=== PATIENT | male | born 1995 ===

== ENCOUNTER 2021-05-19 20:23 | Observation (INO) ==
[2021-05-19 21:11] LABS: Basophils # 0.1 10*3/uL (0.0-0.2); Basophils % 0.3 % (0.0-0.8); Eosinophils # 0.1 10*3/uL (0.0-0.87); Eosinophils % 0.3 % (0.00-10.9); Hemoglobin 14.1 GM/DL (14.0-18.0); Immature Granulocytes % 0.4 %; Immature Granulocytes Absolute 0.07 #; Lymphocytes # 1.3 10*3/uL (1.4-4.0); Lymphocytes % 7.3 % (21.2-54.2); Mean Corpuscular HGB Conc 33.6 GM/DL (32-36); Mean Corpuscular Volume 92.1 FL (87-102); Mean Platelet Volume 9.8 FL (9.6-12.0); Monocytes % 9.4 % (1.7-12.7); Neutrophils % 82.3 % (38.7-73.9); Platelet Count 326 T/CUMM (130-400); Red Blood Count 4.56 MC/CUMM (3.8-5.5); Red Cell Distribution Width 12.1 % (9.3-17.3); White Blood Count 17.8 T/CUMM (4-12)
[2021-05-19] MEDS ORDERED: MORPHINE 4 MG/1 ML VIAL IV STA (21:20)
[2021-05-19] MEDS ORDERED: PIPERACILLIN/TAZOBACTAM 3,375 MG in SODIUM CHLORIDE 0.9% 100 ML IV STA (21:20)
[2021-05-19 21:23] LABS: Albumin 3.7 G/DL (3.4-5.0); Bilirubin,Direct 0.11 MG/DL (0.0-0.20); Bilirubin,Indirect 0.3 MG/DL (0.0-1.0); Bilirubin,Total 0.4 MG/DL (0.20-1.00); Calcium 8.4 MG/DL (8.5-10.1); Osmolality,Calculated 271.8 MOS/KG (273-304); Total Protein 7.5 G/DL (6.4-8.2)
[2021-05-19] MEDS ORDERED: ONDANSETRON 4 MG/2 ML VIAL IV PRN (21:32)
[2021-05-19] MEDS: LACTATED RINGERS 1,000 ML IV SCH (22:59)
[2021-05-20] MEDS: PIPERACILLIN/TAZOBACTAM 3,375 MG in SODIUM CHLORIDE 0.9% 100 ML IV SCH ×3 (05:46→22:02)
[2021-05-20 07:20] LABS: Basophils # 0.1 10*3/uL (0.0-0.2); Basophils % 0.4 % (0.0-0.8); Eosinophils # 0.1 10*3/uL (0.0-0.87); Eosinophils % 0.9 % (0.00-10.9); Hematocrit 43.2 VOL% (42.0-52.0); Hemoglobin 14.1 GM/DL (14.0-18.0); Immature Granulocytes % 0.5 %; Immature Granulocytes Absolute 0.08 #; Lymphocytes # 1.5 10*3/uL (1.4-4.0); Lymphocytes % 10.3 % (21.2-54.2); Mean Corpuscular HGB Conc 32.6 GM/DL (32-36); Mean Corpuscular Volume 92.5 FL (87-102); Mean Platelet Volume 10.4 FL (9.6-12.0); Monocytes % 12.7 % (1.7-12.7); Neutrophils % 75.2 % (38.7-73.9); Platelet Count 330 T/CUMM (130-400); Red Blood Count 4.67 MC/CUMM (3.8-5.5); Red Cell Distribution Width 12.3 % (9.3-17.3); White Blood Count 14.6 T/CUMM (4-12)
[2021-05-20 07:58] LABS: Albumin 3.4 G/DL (3.4-5.0); Calcium 8.5 MG/DL (8.5-10.1); Osmolality,Calculated 273.7 MOS/KG (273-304); Potassium 3.9 MMOL/L (3.5-5.1); Total Protein 7.2 G/DL (6.4-8.2)
[2021-05-20] MEDS: LACTATED RINGERS 1,000 ML IV SCH (07:59)
[2021-05-20] MEDS: MORPHINE 2 MG/1 ML SYRINGE IV PRN ×3 (07:59→23:53)
[2021-05-20] MEDS: PANTOPRAZOLE 40 MG VIAL IV SCH (08:15)
[2021-05-21] MEDS: LACTATED RINGERS 1,000 ML IV SCH ×3 (02:07→11:20)
[2021-05-21] MEDS: PIPERACILLIN/TAZOBACTAM 3,375 MG in SODIUM CHLORIDE 0.9% 100 ML IV SCH ×3 (05:17→21:10)
[2021-05-21 05:59] LABS: Basophils # 0.1 10*3/uL (0.0-0.2); Basophils % 0.4 % (0.0-0.8); Eosinophils # 0.2 10*3/uL (0.0-0.87); Eosinophils % 1.4 % (0.00-10.9); Hematocrit 42.9 VOL% (42.0-52.0); Hemoglobin 14.6 GM/DL (14.0-18.0); Immature Granulocytes % 0.4 %; Immature Granulocytes Absolute 0.06 #; Lymphocytes # 1.5 10*3/uL (1.4-4.0); Lymphocytes % 9.1 % (21.2-54.2); Mean Corpuscular Volume 90.5 FL (87-102); Monocytes % 15.4 % (1.7-12.7); Neutrophils % 73.3 % (38.7-73.9); Platelet Count 288 T/CUMM (130-400); Red Blood Count 4.74 MC/CUMM (3.8-5.5); Red Cell Distribution Width 12.1 % (9.3-17.3); White Blood Count 16.4 T/CUMM (4-12)
[2021-05-21] MEDS ORDERED: LIDOCAINE 1%/EPI INJ 20 ML VIAL ONE (10:11)
[2021-05-21] MEDS ORDERED: BUPIVACAINE MPF 0.25% 30 ML VIAL ONE (10:11)
[2021-05-21] MEDS ORDERED: TISSUE ADHESIVE 1 EACH APPLICATOR TOP ONE (10:11)
[2021-05-21] MEDS ORDERED: DIAZEPAM 5 MG TABLET PO ONE (10:16)
[2021-05-21] MEDS: PANTOPRAZOLE 40 MG VIAL IV SCH (11:19)
[2021-05-21] MEDS ORDERED: KETOROLAC 30 MG/1 ML VIAL ONE (11:40)
[2021-05-21] MEDS ORDERED: SEVOFLURANE 1 UNIT/15 MINUTE INH ONE ×4 (11:40→13:04)
[2021-05-21] MEDS ORDERED: propofoL 200 MG/20 ML VIAL IV ONE (11:40)
[2021-05-21] MEDS ORDERED: ONDANSETRON 4 MG/2 ML VIAL ONE (11:40)
[2021-05-21] MEDS ORDERED: fentaNYL 100 MCG/2 ML VIAL ONE (11:40)
[2021-05-21] MEDS ORDERED: MIDAZOLAM 2 MG/2 ML VIAL ONE (11:40)
[2021-05-21] MEDS ORDERED: LIDOCAINE 2% 5 ML VIAL ONE (11:40)
[2021-05-21] MEDS ORDERED: DEXAMETHASONE 4 MG/1 ML VIAL ONE ×2 (11:40→12:25)
[2021-05-21] MEDS ORDERED: ROCURONIUM 50 MG/5 ML VIAL IV ONE (11:40)
[2021-05-21] MEDS ORDERED: GLYCOPYRROLATE 0.4 MG/2 ML VIAL ONE (12:18)
[2021-05-21] MEDS ORDERED: NEOSTIGMINE 10 MG/10 ML VIAL ONE (12:19)
[2021-05-21] MEDS ORDERED: ACETAMINOPHEN INJ 1,000 MG/100 ML VIAL IV ONE (12:24)
[2021-05-21] MEDS ORDERED: PROMETHAZINE INJ 25 MG in SODIUM CHLORIDE 0.9% 50 ML IV PRN (13:02)
[2021-05-21] MEDS ORDERED: diphenhydrAMINE 50 MG/1 ML VIAL IV PRN (13:02)
[2021-05-21] MEDS ORDERED: ONDANSETRON 4 MG/2 ML VIAL IV PRN (13:02)
[2021-05-21] MEDS ORDERED: HYDROmorphone 2 MG/1 ML VIAL IV PRN (13:02)
[2021-05-21] MEDS ORDERED: MEPERIDINE 25 MG/1 ML VIAL ONE (13:35)
[2021-05-21] MEDS ORDERED: MEPERIDINE 25 MG/1 ML VIAL IV PRN (13:55)
[2021-05-21] MEDS: MORPHINE 2 MG/1 ML SYRINGE IV PRN ×2 (17:24→21:10)
[2021-05-22] MEDS: MORPHINE 2 MG/1 ML SYRINGE IV PRN ×3 (01:05→11:07)
[2021-05-22] MEDS: LACTATED RINGERS 1,000 ML IV SCH (02:34)
[2021-05-22 06:04] LABS: Basophils % 0.2 % (0.0-0.8); Eosinophils # 0.1 10*3/uL (0.0-0.87); Eosinophils % 0.3 % (0.00-10.9); Hematocrit 37.4 VOL% (42.0-52.0); Hemoglobin 12.9 GM/DL (14.0-18.0); Immature Granulocytes % 0.5 %; Immature Granulocytes Absolute 0.08 #; Lymphocytes # 1.4 10*3/uL (1.4-4.0); Lymphocytes % 8.9 % (21.2-54.2); Mean Corpuscular HGB Conc 34.5 GM/DL (32-36); Mean Corpuscular Volume 91.4 FL (87-102); Mean Platelet Volume 10.2 FL (9.6-12.0); Monocytes % 11.7 % (1.7-12.7); Neutrophils % 78.4 % (38.7-73.9); Platelet Count 289 T/CUMM (130-400); Red Blood Count 4.09 MC/CUMM (3.8-5.5); Red Cell Distribution Width 12.1 % (9.3-17.3); White Blood Count 15.7 T/CUMM (4-12)
[2021-05-22] MEDS: PIPERACILLIN/TAZOBACTAM 3,375 MG in SODIUM CHLORIDE 0.9% 100 ML IV SCH (06:04)
[2021-05-22] MEDS: PANTOPRAZOLE 40 MG VIAL IV SCH (08:28)
[2021-05-22 11:41] VITALS: BP 153/73
== END 2021-05-22 14:26 | disposition home or self-care (01) ==
LOC: N.EDINP 20:23 → N.ED 20:23 → N.3E 22:16
PROVIDERS: ADMIT Surgery; ATTEND Surgery
PROC: LAPCHOL (2021-05-21 11:42)